=== PATIENT | male | born 1990 | race Caucasian/White ===

== ENCOUNTER 2016-09-18 08:18 | Emergency (ER) | payer OTHER ==
[2016-09-18 08:22] VITALS: BP 122/65; PULSE 77; TEMP 97.9; BMI 22.5
--- NOTE | 2016-09-18 09:18 | PDOC ---
History of Present Illness - General Chief Complaint: Cold Symptoms Stated Complaint: FEVER, JOINT PAIN, VOMITING Time Seen by Provider: 09/18/16 08:53 History Source: Patient, Parent(s) - History of Present Illness Initial Comments: 09/18/16 09:24 Patient came to emergency department with complaints of generalized body aches, chills and fevers, mild sore throat pain, nonproductive cough. 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 Is used NyQuil and DayQuil with minimal result Timing/Duration: reports: changing over time, getting worse Severity: reports: mild, moderate Associated Symptoms: reports: fever/chills, headache, nasal congestion, nasal drainage, sore throat Past History - Travel Traveled outside of the country in the last 30 days: No Close contact w/someone who was outside of country & ill: No - Past Medical History Allergies/Adverse Reactions: Allergies Allergy/AdvReac Type Severity Reaction Status Date / Time No Known Allergies Allergy Verified 09/18/16 08:22 Home Medications: Ambulatory Orders Oseltamivir Phosphate [Tamiflu -] 75 mg PO BID #10 capsule 09/18/16 Other medical history: denies - Psycho/Social/Smoking Cessation Hx Suicidal Ideation: No Smoking History: Never smoked Number of Cigarettes Smoked Daily: 10 Information on smoking cessation initiated: No Hx Alcohol Use: No Drug/Substance Use Hx: No Substance Use Type: None Review of Systems - Review of Systems Able to Perform ROS?: Yes Is the patient limited Austrian proficient: Yes Constitutional: Yes: Symptoms Reported, See HPI, Chills, Fever, Loss of Appetite , Malaise HEENTM: Yes: Symptoms Reported, See HPI, Nose Congestion, Throat Pain Respiratory: Yes: Symptoms reported, See HPI, Cough. No: Shortness of Breath, Wheezing Musculoskeletal: Yes: Symptoms Reported, See HPI, Joint Swelling, Muscle Pain Integumentary: Yes: See HPI. No: Symptoms Reported Neurological: Yes: Symptoms reported, See HPI, Headache All Other Systems: Reviewed and Negative *Physical Exam - Vital Signs Last Vital Signs Temp Pulse Resp BP Pulse Ox 97.9 F 77 17 122/65 97 09/18/16 08:20 09/18/16 08:20 09/18/16 08:20 09/18/16 08:20 09/18/16 08:20 - Physical Exam General Appearance: Yes: Nourished, Appropriately Dressed, Apparent Distress, Mild Distress HEENT: positive: TYRESE, Normal Voice, TMs Normal, Pharyngeal Erythema, Nasal Congestion, Rhinorrhea (clear). negative: Pharynx Normal, TM Bulging ( congested but landmarks easily visualized) Neck: positive: Supple, Lymphadenopathy (R), Lymphadenopathy (L). negative: Tender Respiratory/Chest: positive: Lungs Clear, Normal Breath Sounds (no wheezing or retraction) Cardiovascular: positive: Regular Rhythm Gastrointestinal/Abdominal: positive: Normal Bowel Sounds, Soft. 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 Will treat with Tamiflu *DC/Admit/Observation/Transfer Diagnosis at time of Disposition: Influenzal acute upper respiratory infection - Discharge Dispostion Disposition: HOME Condition at time of disposition: Stable Admit: No - Prescriptions Prescriptions: Oseltamivir Phosphate [Tamiflu -] 75 mg PO BID #10 capsule - Referrals Referrals: Daniele Alonso MD [Primary Care Provider] - - Patient Instructions Printed Discharge Instructions: DI for Viral Upper Respiratory Infection -- Adult Additional Instructions: Rest, drink lots of fluids: Teas, water, soups, Pedialyte Saltwater gargles Steamy showers/seem to face break up mucus Old-fashioned treatments help! Avoid contact with others until fevers and cough resolved as this is very contagious Lots of handwashing and good hygiene Continue [id number] medications for symptomatic relief Tylenol or Motrin for fever and pain Take all of Tamiflu as directed: 1 tab every 12 hours for 5 days Followup with private physician in one to 2 days as needed or if worsening Return to emergency department for worsened symptoms, fevers, dehydration Influenza takes between 5 and 7 days for resolution To not participate in any activity, work, or school until fevers and cough are gone for at least one day - Post Discharge Activity Work/School Note: Back to Work
== END 2016-09-18 09:29 | disposition home or self-care (01) ==
LOC: JERFT 08:18
DX: J11.1 Influenza due to unidentified influenza virus with other respiratory manifestations (principal)
CPT/HCPCS: 99281-25

== ENCOUNTER 2016-09-21 06:41 | Emergency (ER) | payer OTHER ==
[2016-09-21 07:06] VITALS: BP 126/71; PULSE 60; TEMP 98.8; BMI 23.6
[2016-09-21] MEDS ORDERED: SODIUM CHLORIDE 1,000 ML IV STA (07:31)
[2016-09-21] MEDS ORDERED: ONDANSETRON 4 MG/2 ML VIAL IVPUSH ONE (07:31)
[2016-09-21] MEDS ORDERED: FAMOTIDINE 20 MG/50 ML IVPB 50 ML IVPB ONE ×2 (07:31→08:01)
[2016-09-21] MEDS ORDERED: LOPERAMIDE HCL 2 MG CAPSULE PO ONE (07:32)
--- NOTE | 2016-09-21 07:32 | PDOC ---
History of Present Illness - History of Present Illness Initial Comments: 09/21/16 07:35 The patient is a 26 year old male, with no significant past medical history, who presents to the emergency department with diarrhea, nausea, and one episode of vomiting since starting tamiflu 2 days ago. He states he was seen in the ED two days ago and diagnosed with the flu. He reports about 8 episodes of loose stool an hour since the onset of symptoms. He reports he has been experiencing loss of appetite secondary to his nausea. He states he has only been able to tolerate drinking water and reports one episode of emesis yesterday. He also reports a burning sensation to his epigastric region radiating to the base of his throat. He denies recent travels. He denies chest pain, shortness of breath, headache and dizziness. He denies fever, chills, and constipation. He denies dysuria, frequency, urgency and hematuria. Allergies: NKDA PCP - Dr. Alonso <Sarah Adair - Last Filed: 09/21/16 07:35> <Jory Avila - Last Filed: 09/22/16 07:31> - General Chief Complaint: Diarrhea Stated Complaint: ABDOMINAL PAIN Time Seen by Provider: 09/21/16 07:12 Past History <Sarah Adair - Last Filed: 09/21/16 07:35> - Psycho/Social/Smoking Cessation Hx Suicidal Ideation: No Smoking History: Former smoker Have you smoked in the past 12 months: Yes Number of Cigarettes Smoked Daily: 10 Information on smoking cessation initiated: No Hx Alcohol Use: No Drug/Substance Use Hx: No Substance Use Type: None <Jory Avila - Last Filed: 09/22/16 07:31> - Past Medical History Allergies/Adverse Reactions: Allergies Allergy/AdvReac Type Severity Reaction Status Date / Time No Known Allergies Allergy Verified 09/21/16 07:03 Home Medications: Ambulatory Orders Oseltamivir Phosphate [Tamiflu -] 75 mg PO BID #10 capsule 09/18/16 Review of Systems - Review of Systems Able to Perform ROS?: Yes Comments:: 09/21/16 07:36 GENERAL/CONSTITUTIONAL: No fever or chills. No weakness. HEAD, EYES, EARS, NOSE AND THROAT: No change in vision. No ear pain or discharge. No sore throat. CARDIOVASCULAR: No chest pain or shortness of breath. RESPIRATORY: No cough, wheezing, or hemoptysis. GASTROINTESTINAL:(+) nausea, vomiting, diarrhea; No constipation. GENITOURINARY: No dysuria, frequency, or change in urination. MUSCULOSKELETAL: No joint or muscle swelling or pain. No neck or back pain. SKIN: No rash NEUROLOGIC: No headache, vertigo, loss of consciousness, or change in strength/ sensation. ENDOCRINE: No increased thirst. No abnormal weight change. HEMATOLOGIC/LYMPHATIC: No anemia, easy bleeding, or history of blood clots. ALLERGIC/IMMUNOLOGIC: No hives or skin allergy. <Sarah Adair - Last Filed: 09/21/16 07:35> *Physical Exam - Vital Signs Last Vital Signs Temp Pulse Resp BP Pulse Ox 98.8 F 60 20 126/71 98 09/21/16 07:03 09/21/16 07:03 09/21/16 07:03 09/21/16 07:03 09/21/16 07:03 - Physical Exam Comments: 09/21/16 07:37 GENERAL: Awake, alert, and fully oriented, in no acute distress HEAD: No signs of trauma EYES: PERRLA, EOMI, sclera anicteric, conjunctiva clear ENT: (+) dry mucosa. Auricles normal inspection, hearing grossly normal, nares patent, oropharynx clear without exudates. NECK: Normal ROM, supple, no lymphadenopathy, JVD, or masses LUNGS: Breath sounds equal, clear to auscultation bilaterally. No wheezes, and no crackles HEART: Regular rate and rhythm, normal S1 and S2, no murmurs, rubs or gallops ABDOMEN: Soft, nontender, normoactive bowel sounds. No guarding, no rebound. No masses EXTREMITIES: Normal range of motion, no edema. No clubbing or cyanosis. No cords, erythema, or tenderness NEUROLOGICAL: Cranial nerves II through XII grossly intact. Normal speech, normal gait SKIN: Warm, Dry, normal turgor, no rashes or lesions noted. <Sarah Adair - Last Filed: 09/21/16 07:35> - Vital Signs Last Vital Signs Temp Pulse Resp BP Pulse Ox 98.8 F 60 20 126/71 98 09/21/16 07:03 09/21/16 07:03 09/21/16 07:03 09/21/16 07:03 09/21/16 07:03 <Jory Avila - Last Filed: 09/22/16 07:31> ED Treatment Course - LABORATORY CBC & Chemistry Diagram: 09/21/16 08:00 09/21/16 08:00 <Jory Avila - Last Filed: 09/22/16 07:31> Medical Decision Making - Medical Decision Making Pt improved with IVF and GI cocktail. No signs of acute abdomen. Stable for DC home. <Jory Avila - Last Filed: 09/22/16 07:31> *DC/Admit/Observation/Transfer - Attestations Scribe Attestion: 09/21/16 07:37 Documentation prepared by Sarah Adair, acting as medical device assembler for Jory Avila MD, MD <Sarah Adair - Last Filed: 09/21/16 07:35> - Discharge Dispostion Admit: No <Jory Avila - Last Filed: 09/22/16 07:31> Diagnosis at time of Disposition: Diarrhea Qualifiers: Diarrhea type: unspecified type Qualified Code(s): R19.7 - Diarrhea, unspecified - Discharge Dispostion Disposition: HOME Condition at time of disposition: Improved - Referrals Referrals: Daniele Alonso MD [Primary Care Provider] - - Patient Instructions Printed Discharge Instructions: DI for Diarrhea and Traveler's Diarrhea -- Adult, DI for Vomiting -- Adult
[2016-09-21] MEDS ORDERED: ONDANSETRON 4 MG/2 ML VIAL ONE (08:00)
[2016-09-21] MEDS ORDERED: LOPERAMIDE HCL 2 MG CAPSULE ONE (08:00)
[2016-09-21 08:10] LABS: BASOPHIL 0.5 % (0-2.0); MCH 27.4 pg (25.7-33.7); MCHC 34.8 g/dl (32.0-35.9); MEAN CELL VOLUME 78.8 fl (80-96); MEAN PLT VOLUME 8.9 fl (7.5-11.1); NEUTROPHILS 56.9 % (42.8-82.8); PLATELET COUNT 170 K/MM3 (134-434); RDW 13.3 % (11.9-15.9); WHITE BLOOD COUNT 4.8 K/mm3 (4.0-10.0)
[2016-09-21 08:28] LABS: ALBUMIN 3.5 g/dl (3.4-5.0); ANION GAP 9 (8-16); BILIRUBIN,TOTAL 0.4 mg/dL (0.2-1.0); CALCIUM 8.6 mg/dL (8.5-10.1); CO2 23 mmol/L (21-32); GLUCOSE,RANDOM 85 mg/dL (74-106); SGOT/AST 29 U/L (15-37); SGPT/ALT 32 U/L (12-78); TOT PROT 7.4 g/dl (6.4-8.2)
[2016-09-21 08:29] LABS: ALK PHOS 51 U/L (45-117)
== END 2016-09-21 09:09 | disposition home or self-care (01) ==
LOC: JER 06:41
PROC: 3E033GC Introduction of Other Therapeutic Substance into Peripheral Vein, Percutaneous Approach (ICD-10-PCS; principal; 2016-09-21)
DX: R19.7 Diarrhea, unspecified (principal)
CPT/HCPCS: 36415; 80053; 83690; 85025; 96365; 96375; 99282-25

== ENCOUNTER 2018-12-21 11:14 | Inpatient (IN) | payer OTHER ==
[2018-12-21] MEDS ORDERED: ACETAMINOPHEN 1000 MG/100 ML VIAL (NON FORMULARY) IVPB ONE (13:06)
[2018-12-21] MEDS ORDERED: ACETAMINOPHEN INJECTION 100 ML IVPB ONE (13:41)
[2018-12-21 13:45] LABS: BASO % 0.4 % (0-2.0); EOS % 1.6 % (0-4.5); HEMATOCRIT 44.4 % (35.4-49); HEMOGLOBIN 14.9 GM/dL (11.7-16.9); LYMPH % 15.2 % (8-40); MCH 27.3 pg (25.7-33.7); MCHC 33.5 g/dl (32.0-35.9); MEAN CELL VOLUME 81.4 fl (80-96); MEAN PLT VOLUME 9.7 fl (7.5-11.1); MONO % 8.8 % (3.8-10.2); PLATELET COUNT 213 K/MM3 (134-434); RBC 5.45 M/mm3 (4.00-5.60); RDW 13.5 % (11.9-15.9); WHITE BLOOD COUNT 12.2 K/mm3 (4.0-10.0)
[2018-12-21 14:02] LABS: ALBUMIN 4.1 g/dl (3.4-5.0); BILIRUBIN,TOTAL 0.7 mg/dL (0.2-1); BLOOD UREA NITROGEN 18.5 mg/dL (7-18); CALCIUM 9.1 mg/dL (8.5-10.1); CREATININE 1.1 mg/dL (0.55-1.3); POTASSIUM 4.4 mmol/L (3.5-5.1); TOT PROT 7.7 g/dl (6.4-8.2)
--- NOTE | 2018-12-21 14:10 | PDOC ---
History of Present Illness - General Chief Complaint: Pain, Acute Stated Complaint: SENT BY PCP / ADMIT TO DR ALONSO Time Seen by Provider: 12/21/18 13:01 History Source: Patient Exam Limitations: No Limitations - History of Present Illness Travel History: No Initial Comments: 12/21/18 14:12 28-year-old male sent over from Dr. Alonso's office to evaluate right lower quadrant pain for the past few days. Patient denies fever, chills, chest pain, change in bowel pattern, urinary complaints, or rash. Timing/Duration: reports: constant Quality: reports: moderate, sharpness Abdominal Pain Onset Location: reports: RLQ Pain Radiation: reports: no radiation Activities at Onset: reports: none Aggravating Factors: improves with: None Alleviating Factors: improves with: None Past History - Travel Traveled outside of the country in the last 30 days: No Close contact w/someone who was outside of country & ill: No - Past Medical History Allergies/Adverse Reactions: Allergies Allergy/AdvReac Type Severity Reaction Status Date / Time No Known Allergies Allergy Verified 12/21/18 11:36 Home Medications: Ambulatory Orders Acetaminophen [Tylenol .Regular Strength -] 650 mg PO Q6H tablet 12/23/18 Ibuprofen [Motrin -] 400 mg PO Q6H tablet 12/23/18 Sennosides [Senna -] 2 tab PO HS #60 tablet 12/23/18 COPD: No - Suicide/Smoking/Psychosocial Hx Smoking History: Current every day smoker Have you smoked in the past 12 months: Yes Number of Cigarettes Smoked Daily: 10 Information on smoking cessation initiated: No Hx Alcohol Use: No Drug/Substance Use Hx: No Substance Use Type: None Patient Lives Alone: No Lives with/in: parents Review of Systems - Review of Systems Able to Perform ROS?: Yes Constitutional: No: Symptoms Reported HEENTM: No: Symptoms Reported Respiratory: No: Symptoms reported Cardiac (ROS): No: Symptoms Reported ABD/GI: Yes: Abdominal cramping. No: Constipated, Diarrhea, Nausea, Vomiting : No: Symptoms Reported Musculoskeletal: No: Symptoms Reported Integumentary: No: Symptoms Reported Neurological: No: Symptoms reported *Physical Exam - Vital Signs Last Vital Signs Temp Pulse Resp BP Pulse Ox 98.3 F 50 L 20 117/73 100 12/21/18 11:36 12/21/18 11:36 12/21/18 11:36 12/21/18 11:36 12/21/18 11:36 - Physical Exam General Appearance: Yes: Nourished, Appropriately Dressed. No: Apparent Distress Neck: positive: Supple Respiratory/Chest: positive: Lungs Clear, Normal Breath Sounds. negative: Respiratory Distress, Accessory Muscle Use Cardiovascular: positive: Regular Rhythm, Bradycardia. negative: Murmur Gastrointestinal/Abdominal: positive: Soft, Tenderness (rlq. ) Extremity: positive: Normal Capillary Refill. negative: Pedal Edema Integumentary: positive: Normal Color, Warm, Moist Neurologic: positive: Motor Strength 10/11 ED Treatment Course - LABORATORY CBC & Chemistry Diagram: 12/22/18 06:27 12/22/18 06:27 - RADIOLOGY Radiology Studies Ordered: Category Date Time Status ABDOMEN & PELVIS CT WITH CONTR [CT] Stat CT Scan 12/21/18 13:06 Ordered - Medications Given in the ED: ED Medications Discontinued Medications Generic Name Dose Route Start Last Admin Trade Name Freq PRN Reason Stop Dose Admin Acetaminophen 1,000 mg 12/21/18 13:06 12/21/18 13:42 Ofirmev Injection - IVPB 12/21/18 13:07 1,000 mg ONCE ONE Administration Medical Decision Making - Medical Decision Making 12/21/18 13:16 Chief complaint: Right lower quadrant pain without fever, chills, nausea or change in bowel pattern Exam: Positive McBurney sign mild rebound tenderness Plan: IV Tylenol, IV fluids, labs, urine and CT ordered of the abdomen and pelvis 12/21/18 15:59 Laboratory Tests 12/21/18 12/21/18 12/21/18 13:00 13:00 13:06 WBC 12.2 H Hgb 14.9 Hct 44.4 Absolute Neuts (auto) 9.0 H Sodium 138 Potassium 4.4 Chloride 107 Carbon Dioxide 26 Anion Gap 4 L BUN 18.5 H Creatinine 1.1 Random Glucose 83 Calcium 9.1 Total Bilirubin 0.7 AST 22 ALT 32 Alkaline Phosphatase 48 Total Protein 7.7 Albumin 4.1 Urine Color Yellow Urine Appearance Clear Urine pH 5.0 Ur Specific [place] 1.025 Urine Protein Negative Urine Blood Negative Urine Nitrite Negative Ur Leukocyte Esterase Negative Stool Occult Blood 12/21/18 13:15 WBC Hgb Hct Absolute Neuts (auto) Sodium Potassium Chloride Carbon Dioxide Anion Gap BUN Creatinine Random Glucose Calcium Total Bilirubin AST ALT Alkaline Phosphatase Total Protein Albumin Urine Color Urine Appearance Urine pH Ur Specific [place] Urine Protein Urine Blood Urine Nitrite Ur Leukocyte Esterase Stool Occult Blood Negative 12/21/18 16:[address] shows no evidence of pelvic masses, fluid collection within the pelvis. There is a moderate amount of retained fecal material throughout the colon. There is no CT evidence of acute appendicitis, colitis or diverticulitis. 12/21/18 16:10 Discussed results patient's primary care physician Dr. alonso and is requesting MedSurg observation, IV fluids, and by mouth laxatives. Patient will have repeat labs including CBC . 12/21/18 16:25 Patient's primary care physician, Dr. Alonso is requesting hospitalist to admit patient order patient clear liquids and to please consult in for surgeon. 12/21/18 17:31 Case discussed w/ hospitalist *DC/Admit/Observation/Transfer Diagnosis at time of Disposition: Constipation, Abdominal pain - Discharge Dispostion Disposition: HOME Condition at time of disposition: Good Decision to Admit order: Yes - Referrals - Patient Instructions - Post Discharge Activity
[2018-12-21 14:12] LABS: URINE APPEARANCE CLEAR; URINE BILIRUBIN NEGATIVE (NEGATIVE); URINE COLOR YELLOW; URINE GLUCOSE (UA) NEGATIVE (NEGATIVE); URINE KETONE NEGATIVE (NEGATIVE); URINE LEUK ESTERASE NEGATIVE (NEGATIVE); URINE NITRITE NEGATIVE (NEGATIVE); URINE PROTEIN NEGATIVE (NEGATIVE); URINE UROBILINOGEN 0.2 mg/dL (0.2-1.0)
[2018-12-21] MEDS ORDERED: SODIUM CHLORIDE 1,000 ML IV STA (16:08)
[2018-12-21] MEDS ORDERED: MAGNESIUM CITRATE 300 ML BOTTLE PO ONE (16:09)
[2018-12-21] MEDS ORDERED: MAGNESIUM CITRATE 300 ML BOTTLE ONE (17:14)
[2018-12-21] MEDS ORDERED: ACETAMINOPHEN 325 MG TABLET (FP) PO PRN (17:32)
[2018-12-21] MEDS ORDERED: BISACODYL 10 MG SUPP.RECT RC PRN (17:32)
[2018-12-21] MEDS ORDERED: DOCUSATE SODIUM 100 MG CAPSULE (FP) PO PRN (17:32)
--- NOTE | 2018-12-21 22:15 | HP ---
Admitting History and Physical - Primary Care Physician PCP: Daniele Alonso - Admission Chief Complaint: RLQ pain History of Present Illness: 28 year old male, with no significant past medical history, who presents to the emergency department with c/o RLQ pain x 2days. He decided to present to PCP's office for evaluation and was referred to ED for further workup due to concern for appendicitis. Vitals were stable in ED: BP 132/72, HR 90, RR 16, O2 sat 97% Labs: WBC 12.2 CT abd/pelvis notable for fecal retention. Patient treated with mag-citrate and will be observed overnight for resolution of symptoms. History Source: Patient Limitations to Obtaining History: No Limitations - Past Surgical History Past Surgical History: Yes: Colonoscopy (2019 + hemorrhoids) - Advance Directives Advance Directives: Yes: Health Care Proxy (Brother - Solange [phone] Friend -Kymberly [phone]) - Smoking History Smoking history: Current every day smoker Have you smoked in the past 12 months: Yes Aproximately how many cigarettes per day: 5 (1-5cig/day x 7yrs) - Alcohol/Substance Use Hx Alcohol Use: No History of Substance Use: reports: None - Social History Usual Living Arrangement: Yes: Other (Mother, brother and sister) ADL: Independent 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 History of Recent Travel: No Home Medications - Allergies Allergies/Adverse Reactions: Allergies Allergy/AdvReac Type Severity Reaction Status Date / Time No Known Allergies Allergy Verified 12/21/18 11:36 - Home Medications Home Medications: Ambulatory Orders NK [No Known Home Medication] 12/21/18 Family Disease History - Family Disease History Family Disease History: Other: Father (alive (69) DMII), Mother (alive (56) well ), Brother ( (32) CVA, ) Review of Systems - Review of Systems Constitutional: reports: No Symptoms Eyes: reports: No Symptoms HENT: reports: No Symptoms Neck: reports: No Symptoms Cardiovascular: reports: No Symptoms Respiratory: reports: No Symptoms Gastrointestinal: reports: Abdominal Pain Genitourinary: reports: No Symptoms Breasts: reports: No Symptoms Reported Musculoskeletal: reports: No Symptoms Integumentary: reports: No Symptoms Neurological: reports: No Symptoms Endocrine: reports: No Symptoms Hematology/Lymphatic: reports: No Symptoms Psychiatric: reports: No Symptoms Physical Examination Vital Signs: Vital Signs Temperature 98.3 F 12/21/18 11:36 Pulse Rate 90 12/21/18 19:47 Respiratory Rate 16 12/21/18 19:47 Blood Pressure 132/72 12/21/18 19:47 O2 Sat by Pulse Oximetry (%) 97 12/21/18 19:47 Constitutional: Yes: Well Nourished, No Distress, Calm Eyes: Yes: Conjunctiva Clear, EOM Intact, PERRL HENT: Yes: Atraumatic, Normocephalic Neck: Yes: Supple, Trachea Midline Cardiovascular: Yes: Regular Rate and Rhythm Respiratory: Yes: Regular, CTA Bilaterally Gastrointestinal: Yes: Normal Bowel Sounds, Soft, Tenderness, Rebound (RLQ,) ...Rectal Exam: Yes: Deferred Musculoskeletal: Yes: WNL Extremities: Yes: WNL Edema: No Peripheral Pulses WNL: Yes Peripheral Pulses: Left Radial: 2+, Right Radial: 2+, Left Doralis Pedis: 2+, Right Dorsalis Pedis: 2+ Integumentary: Yes: WNL Neurological: Yes: Alert, Oriented ...Motor Strength: WNL Psychiatric: Yes: Alert, Oriented Labs: CBC, BMP 12/21/18 13:00 12/21/18 13:06 Imaging - Results Cat Scan: Report Reviewed (CT abd 12/21/2018 Impression: FEcal retention with no evidence of appendicitis, colitis or acute pathology within the abdomen or pelvis) Problem List - Problems (1) Prophylactic measure Assessment/Plan: Ambulate as tolerated OOB to chair senna/colace/miralax PRN supp Code(s): Z29.9 - ENCOUNTER FOR PROPHYLACTIC MEASURES, UNSPECIFIED (2) Abdominal pain Assessment/Plan: serial abdominal exam consult placed for general surg to weigh-in on pts clinical condition clear liq diet Code(s): R10.9 - UNSPECIFIED ABDOMINAL PAIN (3) Constipation Assessment/Plan: senna/colace Code(s): K59.00 - CONSTIPATION, UNSPECIFIED Assessment/Plan DISPO: observe overnight Full code status Visit type - Emergency Visit Emergency Visit: Yes ED Registration Date: 12/21/18 Care time: The patient presented to the Emergency Department on the above date and was hospitalized for further evaluation of their emergent condition. - New Patient This patient is new to me today: Yes Date on this admission: 12/21/18 - Critical Care Critical Care patient: No
[2018-12-21] MEDS: SENNOSIDES 8.6MG TABLET (FP) PO SCH (22:54)
[2018-12-21 23:18] VITALS: BMI 21.2
[2018-12-22] MEDS: SENNOSIDES 8.6MG TABLET (FP) PO SCH (04:54)
[2018-12-22 07:15] LABS: BASO % 0.6 % (0-2.0); EOS % 3.4 % (0-4.5); HEMATOCRIT 40.7 % (35.4-49); HEMOGLOBIN 14.3 GM/dL (11.7-16.9); LYMPH % 21.7 % (8-40); MCH 27.8 pg (25.7-33.7); MCHC 35.2 g/dl (32.0-35.9); MEAN PLT VOLUME 9.3 fl (7.5-11.1); MONO % 9.2 % (3.8-10.2); NEUT % 65.1 % (42.8-82.8); RBC 5.15 M/mm3 (4.00-5.60); RDW 13.4 % (11.9-15.9); WHITE BLOOD COUNT 6.6 K/mm3 (4.0-10.0)
[2018-12-22 07:41] LABS: INR 1.14 (0.83-1.09); PROTHROMBIN TIME (PATIENT) 13.5 SEC (9.7-13.0)
[2018-12-22 07:44] LABS: ALBUMIN 3.9 g/dl (3.4-5.0); BLOOD UREA NITROGEN 13.7 mg/dL (7-18); MAGNESIUM 2.4 mg/dL (1.8-2.4); N-TERMINAL BNP 31.6 pg/ml (5-125); PHOSPHOROUS 3.1 mg/dL (2.5-4.9); POTASSIUM 4.4 mmol/L (3.5-5.1); TOT PROT 7.2 g/dl (6.4-8.2)
[2018-12-22 08:15] LABS: PLATELET COUNT 188 K/MM3 (134-434)
--- NOTE | 2018-12-22 08:49 | PN ---
Progress Note, Physician Chief Complaint: discussed case with dr cotto patient has acute appendicitis going to [facility] now for appendectomy - Current Medication List Current Medications: Active Medications Acetaminophen (Tylenol -) 650 mg PO Q6H PRN PRN Reason: PAIN LEVEL 4 - 6 Bisacodyl (Dulcolax Suppository -) 10 mg RC Q24H PRN PRN Reason: CONSTIPATION Docusate Sodium (Colace -) 100 mg PO Q8H PRN PRN Reason: CONSTIPATION Senna (Senna -) 2 tab PO HS ROSE MARY - Objective Vital Signs: Vital Signs Temperature 97.9 F 12/21/18 22:56 Pulse Rate 57 L 12/21/18 22:56 Respiratory Rate 18 12/22/18 01:35 Blood Pressure 122/69 12/21/18 22:56 O2 Sat by Pulse Oximetry (%) 97 12/21/18 19:47 Constitutional: Yes: Mild Distress Eyes: Yes: WNL HENT: Yes: WNL Neck: Yes: WNL Cardiovascular: Yes: WNL Respiratory: Yes: WNL Gastrointestinal: Yes: Tenderness Genitourinary: Yes: WNL Musculoskeletal: Yes: WNL Extremities: Yes: WNL Edema: No Peripheral Pulses WNL: Yes Labs: CBC, BMP 12/22/18 06:27 12/22/18 06:27 INR, PTT INR 1.14 (0.83-1.09) H 12/22/18 06:27 Assessment/Plan Acute Appendicitis cleared for surgery iv abx per surgery npo
--- NOTE | 2018-12-22 15:30 | CONSULT ---
Consult Consult Specialty:: General Surgery Referred by:: Jo Ann Webb Reason for Consultation:: RLQ pain - History of Present Illness Chief Complaint: RLQ pain, anorexia History of Present Illness: 28yo healthy M presented to ER with abdominal pain beginning more generalized Friday morning, after a looser stool, but before lunch, which initially responded to tylenol, but then came back and progressively got worse throughout the day. He lost his appetite but did have dinner. Did not sleep well overnight , and in the morning, the pain had migrated to RLQ. He went to Dr. Alonso's office, who sent him to the ER to r/o appendicitis. Initial wbc was 12, which is normal this morning. CT was initially read as some fecal retention with no appendicitis, and he was given laxatives with good effect. He has tolerated clears, but still with little appetite. No f/c, no n/v, no dysuria. Surgery was asked to assess. He is seen and examined on the floor, amb[facility]. He still feels somewhat tender in the RLQ, but has not used any pain meds after one dose tylenol in ER. He has not received any antibiotics. Last had clear liquids about 12:30pm. He is planning a month-long trip to [place] in about 3 weeks. 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 denies: Chills, Fever Eyes: denies: Blurred Vision, Recent Change in Vision HENT: denies: Difficult Swallowing, Throat Pain Neck: denies: Swollen Glands, Tenderness Cardiovascular: denies: Chest Pain, Palpitations Respiratory: denies: Cough, SOB Gastrointestinal: reports: Abdominal Pain (with hpi), Diarrhea (looser stool Friday). denies: Constipation, Nausea, Vomiting Genitourinary: denies: Burning, Dysuria Musculoskeletal: denies: Back Pain, Joint Pain, Muscle Pain Integumentary: denies: Change in Color, Rash Neurological: denies: Dizziness, Headache Psychiatric: denies: Anxiety, Depression Physical Exam Vital Signs: Vital Signs Temperature 97.6 F 12/22/18 15:21 Pulse Rate 41 L 12/22/18 15:21 Respiratory Rate 18 12/22/18 15:21 Blood Pressure 125/78 12/22/18 15:21 O2 Sat by Pulse Oximetry (%) 97 12/21/18 19:47 Constitutional: Yes: Well Nourished, No Distress, Calm Eyes: Yes: Conjunctiva Clear, EOM Intact HENT: Yes: Atraumatic, Normocephalic Neck: Yes: Supple, Trachea Midline Cardiovascular: Yes: Regular Rate and Rhythm, Bradycardia (mild) Respiratory: Yes: Regular, CTA Bilaterally Gastrointestinal: Yes: Normal Bowel Sounds, Soft, Tenderness (RLQ focal, no anyi/ guarding; referred from RUQ and surrounding areas to RLQ). No: Distention ...Rectal Exam: Yes: Deferred Renal/: No: CVA Tenderness - Left, CVA Tenderness - Right Musculoskeletal: No: Back Pain (no direct tenderness), Joint Stiffness, Joint Swelling Extremities: No: Cool, Cyanosis Edema: No Peripheral Pulses WNL: Yes Integumentary: No: Jaundice, Rash Neurological: Yes: Alert, Oriented. No: Unsteady Gait Psychiatric: Yes: Alert, Oriented Labs: CBC, BMP 12/22/18 06:27 12/22/18 06:27 CMP Sodium 138 mmol/L (136-145) 12/22/18 06:27 Potassium 4.4 mmol/L (3.5-5.1) 12/22/18 06:27 Chloride 105 mmol/L (98-107) 12/22/18 06:27 Carbon Dioxide 30 mmol/L (21-32) 12/22/18 06:27 Anion Gap 3 MMOL/L (8-16) L 12/22/18 06:27 BUN 13.7 mg/dL (7-18) 12/22/18 06:27 Creatinine 1.0 mg/dL (0.55-1.3) 12/22/18 06:27 Est GFR (CKD-EPI)AfAm 117.36 12/22/18 06:27 Est GFR (CKD-EPI)NonAf 101.26 12/22/18 06:27 Random Glucose 76 mg/dL (74-106) 12/22/18 06:27 Calcium 9.0 mg/dL (8.5-10.1) 12/22/18 06:27 Phosphorus 3.1 mg/dL (2.5-4.9) 12/22/18 06:27 Magnesium 2.4 mg/dL (1.8-2.4) 12/22/18 06:27 Total Bilirubin 1.0 mg/dL (0.2-1) 12/22/18 06:27 AST 18 U/L (15-37) 12/22/18 06:27 ALT 27 U/L (13-61) 12/22/18 06:27 Alkaline Phosphatase 46 U/L (45-117) 12/22/18 06:27 B-Natriuretic Peptide 31.6 pg/ml (5-125) 12/22/18 06:27 Total Protein 7.2 g/dl (6.4-8.2) 12/22/18 06:27 Albumin 3.9 g/dl (3.4-5.0) 12/22/18 06:27 TSH 1.44 uIU/ml (0.358-3.74) 12/22/18 06:27 INR, PTT INR 1.14 (0.83-1.09) H 12/22/18 06:27 Urine Test Results Urine Color Yellow 12/21/18 13:00 Urine Appearance Clear 12/21/18 13:00 Urine pH 5.0 (5.0-8.0) 12/21/18 13:00 Ur Specific Hope 1.025 (1.010-1.035) 12/21/18 13:00 Urine Protein Negative (NEGATIVE) 12/21/18 13:00 Urine Glucose (UA) Negative (NEGATIVE) 12/21/18 13:00 Urine Ketones Negative (NEGATIVE) 12/21/18 13:00 Urine Blood Negative (NEGATIVE) 12/21/18 13:00 Urine Nitrite Negative (NEGATIVE) 12/21/18 13:00 Urine Bilirubin Negative (NEGATIVE) 12/21/18 13:00 Ur Leukocyte Esterase Negative (NEGATIVE) 12/21/18 13:00 Imaging - Results Cat Scan: Report Reviewed, Image Reviewed (images reviewed with radiologist - RLQ with enlarged, tubular structure with small punctate hyperdensity in it, suspect appendicitis) Problem List - Problems (1) Appendicitis, acute Assessment/Plan: Appendix is enlarged and with appendicolith on CT scan, report addended by radiology History and exam consistent with acute appendicitis NPO until postop DVT prophylaxis nonnarcotic pain meds after surgery periop antibiotics Discussed with patient risks, benefits and alternatives of laparoscopic possible open appendectomy, including but not limited to bleeding, infection, injury to adjacent structures, intestinal leak or injury, intraabdominal abscess , incisional hernia, need for further procedures; alternatives include antibiotics, delayed or no surgery - risks of this include failure of nonoperative therapy, perforation, sepsis, recurrence. Patient desires to proceed with operation - will take to OR imminently for above. Informed consent signed for same. Discussed with Dr. Alonso Code(s): K35.80 - UNSPECIFIED ACUTE APPENDICITIS Qualifiers: Acute appendicitis type: with localized peritonitis Appendicitis gangrene presence: without gangrene Appendicitis perforation presence: without perforation Appendicitis abscess presence: without abscess Qualified Code(s) : K35.30 - Acute appendicitis with localized peritonitis, without perforation or gangrene (2) RLQ abdominal pain Code(s): R10.31 - RIGHT LOWER QUADRANT PAIN (3) Right lower quadrant abdominal tenderness without rebound tenderness Code(s): R10.813 - RIGHT LOWER QUADRANT ABDOMINAL TENDERNESS (4) Anorexia Code(s): R63.0 - ANOREXIA
[2018-12-22] MEDS ORDERED: PROMETHAZINE HCL 25 MG/1 ML VIAL IVPUSH PRN (16:03)
[2018-12-22] MEDS ORDERED: ONDANSETRON 4 MG/2 ML VIAL IVPUSH PRN ×2 (16:03→18:08)
[2018-12-22] MEDS ORDERED: CEFOXITIN SODIUM 2 GM IVPB ONE (16:08)
[2018-12-22] MEDS ORDERED: MIDAZOLAM HCL 2 MG/2 ML SINGLE DOSE VIAL ONE (16:10)
[2018-12-22] MEDS ORDERED: ROCURONIUM BROMIDE 50 MG/5 ML SYRINGE ONE (16:10)
[2018-12-22] MEDS ORDERED: PROPOFOL 20 ML ONE (16:10)
[2018-12-22] MEDS ORDERED: BUPIVACAINE HCL/PF 0.5% (5MG/ML) 10 ML VIAL ONE (16:11)
[2018-12-22] MEDS ORDERED: LACTATED RINGERS SOLUTION 1,000 ML IV SCH ×2 (16:15→18:08)
[2018-12-22] MEDS ORDERED: DEXAMETHASONE SOD PHOSPHATE 4 MG/1 ML VIAL ONE (16:20)
[2018-12-22] MEDS ORDERED: BUPIVACAINE HCL/PF 0.5% (5MG/ML) 10 ML VIAL IJ ONE (16:20)
[2018-12-22] MEDS ORDERED: GLYCOPYRROLATE 0.2 MG/1 ML VIAL ONE ×2 (16:21→17:24)
[2018-12-22] MEDS ORDERED: cefOXitin SODIUM 2 GM VIAL (RESTRICTED TO ID) IVPB ONE (16:29)
[2018-12-22] MEDS ORDERED: BENZOIN TINCTURE SWABSTICK TP ONE (16:33)
[2018-12-22] MEDS ORDERED: NEOSTIGMINE METHYLSULFATE 0.5 MG/ML - 10 ML MDV ONE (17:25)
[2018-12-22] MEDS ORDERED: ACETAMINOPHEN INJECTION 100 ML IVPB ONE (17:53)
[2018-12-22] MEDS ORDERED: ACETAMINOPHEN 1000 MG/100 ML VIAL (NON FORMULARY) IVPB ONE ×2 (17:54→18:08)
--- NOTE | 2018-12-22 17:55 | OP ---
Operative Note - Note: Operative Date: 12/22/18 Pre-Operative Diagnosis: acute appendicitis Operation: laparoscopic appendectomy Findings: 30ml yellow fluid in pelvis appendix long, inflamed, with thin adhesions to surrounding RLQ tissues Post-Operative Diagnosis: Same as Pre-op Surgeon: Osmin Rodriguez Anesthesiologist/HOME APPLIANCE INSTALLER: Pancho Sarabia (debbie/Silvia) Anesthesia: General, Local (10ml 0.5% marcaine) Specimens Removed: appendix to pathology Estimated Blood Loss (mls): 5 Drains & Tubes with Location: Aguirre out at case end Drains, Volume Out (mls): 125 (UOP) Fluid Volume Replaced (mls): 1,000 (crystalloid) Operative Report Dictated: Yes
[2018-12-22] MEDS ORDERED: IBUPROFEN 400 MG TABLET (FP) PO SCH (21:00)
[2018-12-22] MEDS: IBUPROFEN 400 MG TABLET (FP) PO SCH (21:28)
[2018-12-23] MEDS ORDERED: ACETAMINOPHEN 325 MG TABLET (FP) PO SCH
[2018-12-23] MEDS: ACETAMINOPHEN 325 MG TABLET (FP) PO SCH ×3 (00:33→12:40)
[2018-12-23] MEDS: IBUPROFEN 400 MG TABLET (FP) PO SCH ×2 (04:49→09:50)
--- NOTE | 2018-12-23 09:27 | DS ---
Physical Examination Vital Signs: Vital Signs Temperature 97.5 F L 12/23/18 07:00 Pulse Rate 47 L 12/23/18 07:00 Respiratory Rate 18 12/23/18 07:00 Blood Pressure 121/72 12/23/18 07:00 O2 Sat by Pulse Oximetry (%) 100 12/22/18 21:00 Findings/Remarks: pod #1 appendectomy comfortable Constitutional: Yes: Mild Distress Eyes: Yes: WNL HENT: Yes: WNL Neck: Yes: WNL Cardiovascular: Yes: Regular Rate and Rhythm Respiratory: Yes: WNL Gastrointestinal: Yes: Normal Bowel Sounds, Other Renal/: Yes: WNL Breast(s): Yes: WNL Musculoskeletal: Yes: WNL Extremities: Yes: WNL Edema: No Peripheral Pulses WNL: Yes Integumentary: Yes: WNL Wound/Incision: Yes: Clean/Dry Neurological: Yes: WNL ...Motor Strength: WNL Psychiatric: Yes: WNL Labs: CBC, BMP 12/22/18 06:27 12/22/18 06:27 Discharge Summary Reason For Visit: ABDOMINAL PAIN Current Active Problems Abdominal pain (Acute) Anorexia (Acute) Appendicitis, acute (Acute) Constipation (Acute) Prophylactic measure (Acute) RLQ abdominal pain (Acute) Right lower quadrant abdominal tenderness without rebound tenderness (Acute) Procedures: Principal: CT SCAN Hospital Course: ACUTE APPENDICITIS, APPENDECTOMY TOLERATED WELL. CAN F/U OUTPATIENT Condition: Good - Instructions Diet, Activity, Other Instructions: Postoperative instructions: You had a laparoscopic appendectomy on 12/22/[address] Osmin Rodriguez of [facility]. Activity: Resume your usual activities gradually, but no heavy exertion or lifting more than 10-15 pounds for 1 month. At that time, you will GRADUALLY be able to resume lifting or carrying more until you feel back to normal. Remove dressings 48 hours after surgery; sticky tapes underneath will fall off by themselves. You may shower daily starting then, just pat the incision areas dry. No bath or swimming until skin incisions have fully healed. Eat lightly at first, but advance to your usual diet as tolerated. Pain: For pain, you may use and alternate Tylenol (acetaminophen) 1-2 pills and/ or ibuprofen 200 mg (1-3 pills) every 6 hours each as needed; this means that you can take one OR the other at 3-hour intervals. If you are prescribed a Tylenol/narcotic combination for severe pain, use it instead of plain Tylenol as needed and switch back when your pain starts decreasing. Do not take more than 4000mg of acetaminophen in a day. Take medications as prescribed or indicated on the labeling. Follow-up: Call Dr. Rodriguez's office at [phone] to make your postop appointment (Friday in approximately 2 weeks after surgery). Clinic is held in the Diagnostic [facility] on the first floor of [facility]. Call the office if you have: * increasing pain not responsive to pain medication * fever of 101F or higher * vomiting * unusual or increasing bleeding or drainage from wounds * increasing redness or swelling at wound sites Also, see your primary medical doctor (Dr. Alonso) within 1-2 weeks. Referrals: Osmin Rodriguez MD [Staff Physician] - 2 Weeks (CALL for appointment) Disposition: HOME - Home Medications Comprehensive Discharge Medication List: Ambulatory Orders NK [No Known Home Medication] 12/21/18
[2018-12-23] MEDS ORDERED: LACTOBACILLUS ACIDOPHILUS 1 TABLET PO ONE (09:45)
--- NOTE | 2018-12-23 11:05 | PN ---
Progress Note, Physician History of Present Illness: Pt s/p lap appy for acute appendicitis. Seen and examined in bed, feeling better. C/O some incisional pain, managed well with nonnarcotics po. Tolerating diet, ambulating, voiding. No further BM yet (was cleaned out with laxatives initially). Using IS. - Current Medication List Current Medications: Active Medications Acetaminophen (Tylenol -) 650 mg PO Q6H [facility] Last Admin: 12/23/18 06:43 Dose: 650 mg Lactated Ringer's (Lactated Ringers Solution) 1,000 mls @ 125 mls/hr IV ASDIR [facility] Last Admin: 12/22/18 21:30 Dose: 125 mls/hr Ibuprofen (Motrin -) 400 mg PO Q6H [facility] Last Admin: 12/23/18 09:50 Dose: 400 mg Lactobacillus Acidophilus (Bacid -) 1 tab PO DAILY [facility] Ondansetron HCl (Zofran Injection) 4 mg IVPUSH Q6H PRN PRN Reason: NAUSEA AND/OR VOMITING - Objective Vital Signs: Vital Signs Temperature 97.5 F L 12/23/18 07:00 Pulse Rate 47 L 12/23/18 07:00 Respiratory Rate 18 12/23/18 07:00 Blood Pressure 121/72 12/23/18 07:00 O2 Sat by Pulse Oximetry (%) 100 12/22/18 21:00 Constitutional: Yes: Well Nourished, No Distress, Calm Eyes: Yes: Conjunctiva Clear, EOM Intact HENT: Yes: Atraumatic, Normocephalic Gastrointestinal: Yes: Soft, Distention (mild), Tenderness (incisional but not RLQ anymore, no anyi/guard) Extremities: No: Cool, Cyanosis Integumentary: Yes: Incision (x3 dressed). No: Jaundice, Rash Wound/Incision: Yes: Steri Strips (under dressings), Dressing Dry and Intact (x3 , tiny dried strikethrough on umbilical site). No: Dressing Removed Neurological: Yes: Alert, Oriented Labs: no new labs Problem List - Problems (1) Appendicitis, acute Assessment/Plan: POD1 s/p laparoscopic appendectomy doing well ambulating, voiding, tolerating diet alternating tylenol and ibuprofen managing incisional pain dressings c/d/i appropriate postop tenderness no further abx needed anticipate resumption of normal bowel function in next few days ready for d/c home instructions in d/c plan f/u in 2 weeks Code(s): K35.80 - UNSPECIFIED ACUTE APPENDICITIS Qualifiers: Acute appendicitis type: with localized peritonitis Appendicitis gangrene presence: without gangrene Appendicitis perforation presence: without perforation Appendicitis abscess presence: without abscess Qualified Code(s) : K35.30 - Acute appendicitis with localized peritonitis, without perforation or gangrene (2) RLQ abdominal pain Assessment/Plan: resolved Code(s): R10.31 - RIGHT LOWER QUADRANT PAIN (3) Right lower quadrant abdominal tenderness without rebound tenderness Assessment/Plan: improved/resolved - incisional only Code(s): R10.813 - RIGHT LOWER QUADRANT ABDOMINAL TENDERNESS (4) Anorexia Assessment/Plan: resolved Code(s): R63.0 - ANOREXIA
[2018-12-23 13:01] VITALS: BP 128/69; PULSE 60; TEMP 97.9
[2018-12-24] MEDS ORDERED: LACTOBACILLUS ACIDOPHILUS 1 TABLET PO SCH (10:00)
--- NOTE | 2018-12-24 15:37 | PATH ---
Surgical Pathology Report Patient Name: TONJA ROSE Med. Rec. #: [id number] /Age/Gender: 1990 (Age: 28) / M Account: [id number] Location: [facility] MED/SURG Taken: 12/22/2018 Received: 12/23/2018 Reported: 12/24/2018 Physicians: Osmin Rodriguez M.D. Specimen(s) Received APPENDIX Clinical History Appendicitis, acute Final Diagnosis APPENDIX, LAPAROSCOPIC APPENDECTOMY: ACUTE APPENDICITIS AND PERIAPPENDICITIS. Electronically Signed Iris Alberto M.D. Gross Description Received in formalin, labeled "appendix," is a 7.5 cm. in length vermiform appendix with a stapled margin of resection and moderate attached fat. The serosa is woodson-aparicio with a longitudinal staple line down the entire aspect of the appendix. Sectioning reveals a hemorrhagic lumen. The wall of the appendix averages 0.1 cm. in thickness. [employer] Farm Manager sections are submitted in one cassette. /12/23/2018 saudi/12/23/2018
--- NOTE | 2019-02-01 18:31 | OP ---
DATE OF OPERATION: 12/22/2018 PREOPERATIVE DIAGNOSIS: Acute appendicitis. POSTOPERATIVE DIAGNOSIS: Acute appendicitis. PROCEDURE: Laparoscopic appendectomy. SURGEON: Osmin Rodriguez MD ANESTHESIA: General endotracheal and local, 10 mL of 0.5% Marcaine. ESTIMATED BLOOD LOSS: 5 mL. FLUIDS: 1 L of crystalloid. URINE OUTPUT: 125 mL. SPECIMEN: Appendix to pathology. FINDINGS: Thirty milliliters of yellow fluid in the pelvis and a long, inflamed appendix with thin adhesions to the surrounding right lower quadrant tissues. DISPOSITION: Stable and extubated to PACU. INDICATION FOR PROCEDURE: The patient is a 28-year-old healthy male who had presented to the emergency room with abdominal pain beginning more generalized a couple of days prior. The pain initially responded to Tylenol but then came back and got progressively worse throughout the day. He had also lost his appetite and did not sleep well overnight. The pain migrated to the right lower quadrant by the following morning, and he went to his primary care doctor, who sent him to the emergency room to rule out appendicitis. Initial white count was 12,000, which had normalized by the next day, and initial CT was read as fecal retention but not clearly appendicitis. He was given laxatives with good effect and had briefly tolerated clears, but still had little appetite and was tender in the right lower quadrant. Re-review of the CT scan with the radiologist did reveal an enlarged tubular structure with a small punctate hyperdensity consistent with a likely appendicolith, and appendicitis was strongly believed to be the diagnosis. Risks, benefits, and alternatives of laparoscopic, possible open appendectomy were discussed with the patient, including but not limited to bleeding, infection, injury to adjacent structures, intestinal leak or injury, intraabdominal abscess, incisional hernia, need for further procedures. The alternatives inclusive of antibiotics with delayed or no surgery were also discussed, including risks of failure of nonoperative therapy, perforation, sepsis, and recurrence. The patient desired to proceed with the operation and signed informed consent for the same. He is taken urgently to the OR currently for this procedure. OPERATIVE TECHNIQUE: The patient was brought to the operating room and laid supine on the operating table. Sequential compression devices were applied to bilateral lower extremities, and cefoxitin was given as preoperative antibiotic. After induction and intubation by Anesthesia, a Aguirre catheter was placed in the patient's bladder, which was removed at the end of the case. His lower abdominal hair was clipped, and his lower abdomen prepped and draped in sterile fashion. A small infraumbilical incision was made with a scalpel and carried into subcutaneous tissues with electrocautery, until the abdominal wall fascia was identified, scored, and elevated with Baljeet clamps. The peritoneum was entered bluntly with the tip of a clamp, and a fingertip was inserted to ensure entry into the abdominal cavity and the absence of any underlying adhesions. A stay suture of 0 Vicryl was then placed in [id number] fashion in the fascia for later closure, and the Maurice trocar introduced directly into the abdominal cavity and secured in place with the balloon. The abdomen was insufflated with carbon dioxide, the laparoscope inserted to inspect the pelvic cavity, and the patient was placed in Trendelenburg position with the right side planed slightly upward. Two additional 5-mm ports were placed under direct vision in the left lower quadrant and suprapubic areas, and the camera was moved to the left lower quadrant. Two graspers were inserted through the other 2 ports, used the manipulate the small bowel medially away from the right lower quadrant. The cecum was identified and followed down to the appendix. This was then also grasped and elevated and noted to be quite elongated. It was somewhat inflamed, with some mild thin adhesions to the surrounding tissues which were bluntly taken with the graspers throughout the dissection. There was 30 mL of yellow fluid noted in the pelvis and the suction scrap hooker tool used to suction that fluid out. Irrigation was not undertaken. The appendix was grasped with one grasper and a window created at the base of the appendix where it joined the cecum with a [place] dissector, such that the base of the appendix could be transected with a 45 purple load of the Endo RUBENS stapler. The remaining appendix and mesoappendix were then held up, which was also transected with a white load of the Endo RUBENS stapler. The appendix was then placed in an EndoCatch bag and the operative field inspected for hemostasis, which was noted to be complete, as there was no bleeding from any staple lines. The bag was then drawn up into the Maurice trocar, the suprapubic port removed under direct vision, the Maurice and appendix removed en bloc from that location, and the camera and the left lower quadrant port also withdrawn entirely. The abdomen was exsufflated of carbon dioxide, and the appendix was passed off for a pathology specimen. The patient was returned to neutral position. The stay suture at the umbilicus was tied to close the fascia there. Hemostasis was achieved in the port sites with electrocautery where needed, and local anesthetic infiltrated into all 3 sites. Skin was then closed with 4-0 Vicryl subcuticular sutures, including a running at the umbilical site. Benzoin and Steri-Strips were applied over each incision , and dressings of gauze and Tegaderm placed over these. Counts were correct at the end of the procedure. The Aguirre catheter was also removed at the end of the procedure. The patient was then awakened and extubated by Anesthesia, moved back to a stretcher and taken to the recovery room in stable condition, having tolerated the procedure well. Osmin Rodriguez M.D. [id number] MTDD
== END 2018-12-23 13:18 | disposition home or self-care (01) | DRG 225 ==
LOC: JER 11:14 → JERBED 16:07 → J7W 22:22 → OBSVTOIN 12-22 08:36 → J7W 12-22 19:32
PROVIDERS: ADMIT Family Medicine; ATTEND Family Medicine
PROC: 0DTJ4ZZ Resection of Appendix, Percutaneous Endoscopic Approach (ICD-10-PCS; principal; 2018-12-22 15:30)
DX: K35.80 Unspecified acute appendicitis (principal); K59.00 Constipation, unspecified; R63.0 Anorexia; F17.210 Nicotine dependence, cigarettes, uncomplicated
CPT/HCPCS: 36415; 74177-TC; 80053; 81003; 82272; 83735; 83880; 84100; 84443; 85025; 85610; 85730; 87086; 88304-TC; 94760; 99283-25; G0378; J0131; J7030